=== PATIENT | female | born 1960 | race Two or more races ===

== ENCOUNTER 2025-09-08 08:41 | Outpatient (CLI) | payer OTHER ==
[2025-09-08 08:59] LABS: Hematocrit 41.2 % (36.0-46.0); Hemoglobin 13.4 g/dL (12.2-16.2); Mean Corpuscular Hemoglobin 27.1 pg (28.0-32.0); Mean Corpuscular Volume 83.6 fL (80.0-100.0); Nucleated Red Blood Cells % 0.0 %
[2025-09-08 09:24] LABS: Alanine Aminotransferase 16 U/L (7-40); Albumin 4.5 g/dL (3.2-4.8); Alkaline Phosphatase 109 U/L (46-116); Anion Gap 11 (5-15); BUN/Creatinine Ratio 13.2 (10.0-20.0); Calcium 9.8 mg/dL (8.7-10.4); Carbon Dioxide 27 mmol/L (20-31); Chloride 102 mmol/L (98-107); Glucose 96 mg/dL (74-106); Potassium 4.3 mmol/L (3.5-5.1); Sodium 140 mmol/L (136-145); Total Protein 8.2 g/dL (5.7-8.2)
[2025-09-08 09:25] LABS: Bilirubin, Total 0.5 mg/dL (0.2-1.0); HDL Cholesterol 48 mg/dL (40-59)
[2025-09-08 09:28] LABS: Blood Urea Nitrogen 9 mg/dL (9-23); Cholesterol 242 mg/dL (< 200); Triglycerides 178 mg/dL (< 150)
== END 2025-09-11 17:00 | disposition home or self-care (01) ==
LOC: LAB 08:41
PROVIDERS: ATTEND Nurse Practitioner Family
DX: I10 Essential (primary) hypertension (principal); E66.9 Obesity, unspecified; Z00.01 Encounter for general adult medical examination with abnormal findings
CPT/HCPCS: 36415; 80053; 80061; 82306; 84443; 85025